=== PATIENT | female | born 1935 | race Hispanic/Latino ===

== ENCOUNTER 2024-01-25 07:04 | Day surgery (SDC) | payer MEDICARE, OTHER ==
[2024-01-25] VITALS (10 sets, daily range): BP systolic 130–153; BP diastolic 58–76; PULSE 75–92; RESP 15–18; TEMP 97.1–97.6
[~2024-01-25] VITALS: Ht 160 cm; Wt 52.2 kg
[~2024-01-25 07:04] MED LIST: ATENOLOL PO; ATOR-428 PO; CLARITIN D PO; CLOP-31 PO; NORVASC PO
[2024-01-25] MEDS ORDERED: HYDR25TA67 PO (11:27)
[2024-01-25] MEDS ORDERED: TEMA15CA PO (11:27)
[2024-01-25] MEDS ORDERED: PANT40TA54 PO (11:27)
[2024-01-25] MEDS ORDERED: LEVO50CA4 PO (11:27)
[2024-01-25] MEDS ORDERED: CLON0.1T PO (11:27)
[2024-01-25] MEDS ORDERED: ASPI-1197 PO (11:27)
[2024-01-25] MEDS ORDERED: AMLO-257 PO (11:27)
[2024-01-25] MEDS ORDERED: VITAMIN D2 PO (11:28)
[2024-01-25] MEDS: 0.9%NACL 1000ML 1,000 ML IV ONE (11:45)
[2024-01-25] MEDS ORDERED: proPOFol 10 MG/ML 20ML VIAL IV ONE (13:56)
[2024-01-25] MEDS ORDERED: LIDOCAINE HCL 1% 20 ML VIAL ONE (13:57)
== END 2024-01-25 15:34 | disposition home or self-care (01) ==
LOC: DAH 07:04
PROVIDERS: ATTEND Internal Medicine
DX: K92.1 Melena (principal); K59.04 Chronic idiopathic constipation; K57.30 Diverticulosis of large intestine without perforation or abscess without bleeding; I10 Essential (primary) hypertension; J44.9 Chronic obstructive pulmonary disease, unspecified; E03.9 Hypothyroidism, unspecified; Z98.890 Other specified postprocedural states; Z96.641 Presence of right artificial hip joint; Z85.118 Personal history of other malignant neoplasm of bronchus and lung; Z79.899 Other long term (current) drug therapy; Z98.49 Cataract extraction status, unspecified eye; Z90.49 Acquired absence of other specified parts of digestive tract
CPT/HCPCS: 45378; J7030 ×2; J2704; A4620; A4215 ×2; A4223; A4222; A4221; A4663; A4606; J3490